=== PATIENT | male | born 1975 | race Caucasian/White ===

== ENCOUNTER 2020-02-09 22:07 | Emergency (ER) | payer MEDICARE, MEDICAID ==
[~2020-02-09] VITALS: Ht 180.3 cm; Wt 94.3 kg
[2020-02-10 02:41] VITALS: BP 141/85
== END 2020-02-10 02:40 | disposition home or self-care (01) ==
LOC: ER 22:07
DX: S93.401A Sprain of unspecified ligament of right ankle, initial encounter (principal); S90.01XA Contusion of right ankle, initial encounter; W01.0XXA Fall on same level from slipping, tripping and stumbling without subsequent striking against object, initial encounter; Y93.01 Activity, walking, marching and hiking; Y92.89 Other specified places as the place of occurrence of the external cause; Y99.8 Other external cause status
CPT/HCPCS: 73600

== ENCOUNTER 2020-03-10 07:43 | Emergency (ER) | payer MEDICARE, MEDICAID ==
[~2020-03-10] VITALS: Ht 180.3 cm; Wt 92.5 kg
[2020-03-10 07:55] VITALS: BP 139/104
== END 2020-03-10 10:39 | disposition home or self-care (01) ==
LOC: ER 07:43
DX: Z00.00 Encounter for general adult medical examination without abnormal findings (principal); L98.8 Other specified disorders of the skin and subcutaneous tissue

== ENCOUNTER 2020-03-17 16:07 | Emergency (ER) | payer MEDICARE, MEDICAID ==
[~2020-03-17] VITALS: Ht 180.3 cm; Wt 94.3 kg
[2020-03-17 20:04] VITALS: BP 137/82
== END 2020-03-17 20:05 | disposition home or self-care (01) ==
LOC: ER 16:07
DX: B35.0 Tinea barbae and tinea capitis (principal); L21.8 Other seborrheic dermatitis

== ENCOUNTER 2020-03-21 23:39 | Emergency (ER) | payer MEDICARE, MEDICAID ==
[~2020-03-21] VITALS: Ht 180.3 cm; Wt 95.3 kg
[2020-03-22 01:26] LABS: Alcohol, Urine < 3.0 mg/dL (0-10); Amphetamine Screen, Urine NEGATIVE (NEGATIVE); Barbiturate Scree,Urine NEGATIVE (NEGATIVE); Benzodiazephine Screen, Urine NEGATIVE (NEGATIVE); Cannabinoid Screen, Urine NEGATIVE (NEGATIVE); Cocaine Screen, Urine NEGATIVE (NEGATIVE); Opiate Scree,Urine NEGATIVE (NEGATIVE); Phencyclidine Screen, Urine NEGATIVE (NEGATIVE)
[2020-03-22 03:48] VITALS: BP 124/83
== END 2020-03-22 04:07 | disposition home or self-care (01) ==
LOC: ER 23:40
DX: R68.83 Chills (without fever) (principal); F22 Delusional disorders; F60.0 Paranoid personality disorder
CPT/HCPCS: 80307

== ENCOUNTER 2021-03-28 20:52 | Emergency (ER) | payer MEDICARE, OTHER ==
[~2021-03-28] VITALS: Ht 177.8 cm; Wt 95.3 kg
[2021-03-28] MEDS ORDERED: SODIUM CHLORIDE 0.9% 1,000 ML IV ONE (22:30)
[2021-03-28 23:19] LABS: Basophils # (auto) 0.1 10 ^3/uL (0-0.2); Basophils % (auto) 1.3 % (0.0-2.0); Eosinophils # (auto) 0 10 ^3/uL (0-0.8); Eosinophils % (auto) 0.4 % (0.0-7.0); Hematocrit 50.5 % (41.0-53.0); Hemoglobin 16.9 g/dL (13.5-17.5); Lymphocytes # (auto) 2.7 10 ^3/uL (0.4-5.4); Lymphocytes % (auto) 24.4 % (10.0-50.0); Mean Corpuscular Hemoglobin 31.1 pg (28.0-32.0); Mean Corpuscular Hgb Conc. 33.5 g/dL (32.0-36.0); Mean Corpuscular Volume 92.8 fL (80.0-100.0); Monocytes # (auto) 0.6 10 ^3/uL (0-1.3); Monocytes % (auto) 5.4 % (0.0-12.0); Neutrophils # (auto) 7.5 10 ^3/uL (1.6-8.6); Neutrophils % (auto) 68.5 % (37.0-80.0); Red Blood Cells 5.44 10^6/uL (4.5-5.90); White Blood Cell 10.9 10^3/uL (4.4-10.8)
[2021-03-28 23:40] LABS: Albumin 4.4 g/dL (3.4-5.0); BUN/Creatinine Ratio 14.2; Calcium 9.8 mg/dL (8.5-10.1); Magnesium 2.4 mg/dL (1.6-2.6); Potassium 3.8 mmol/L (3.5-5.1)
[2021-03-28 23:43] LABS: Total Protein 8.5 g/dL (6.4-8.2)
[2021-03-29 03:57] VITALS: BP 132/97
[2021-03-29] MEDS ORDERED: IBUPROFEN 600 MG TAB PO ONE ×2 (04:14→04:30)
== END 2021-03-29 04:11 | disposition home or self-care (01) ==
LOC: EDBD 20:52 → ER 20:53
DX: R42 Dizziness and giddiness (principal); R55 Syncope and collapse
CPT/HCPCS: 36415; 80053; 83735; 85025; 96360

== ENCOUNTER 2021-03-29 05:15 | Emergency (ER) | payer MEDICARE, OTHER ==
[~2021-03-29] VITALS: Ht 180.3 cm; Wt 90.7 kg
[2021-03-29 08:25] VITALS: BP 110/77
== END 2021-03-29 08:45 | disposition home or self-care (01) ==
LOC: ER 05:15
DX: G44.209 Tension-type headache, unspecified, not intractable (principal)
CPT/HCPCS: 70450